=== PATIENT | male | born 1965 | race Caucasian/White ===

== ENCOUNTER 2018-10-25 06:19 | Day surgery (SDC) | payer BC ==
[~2018-10-25 06:19] MED LIST: Buffered Lidocaine 1% SYRIN* 1 ML/SYRINGE INTRADERM ONE; Dexamethasone IV* 4 MG/ML 1 ML (4 MG) IV SLOW PU ONE; Famotidine IV* 10 MG/ML 2 ML (20 mg) IV ONE; Lactated Ringers 1000 ML Bag* 1,000 ML IV SCH
[2018-10-25] MEDS ORDERED: Dexamethasone IV* 4 MG/ML 1 ML (4 MG) ONE (06:31)
[2018-10-25] MEDS ORDERED: Famotidine IV* 10 MG/ML 2 ML (20 mg) ONE (06:31)
[2018-10-25] MEDS ORDERED: Buffered Lidocaine 1% SYRIN* 1 ML/SYRINGE INTRADERM ONE (06:37)
[2018-10-25] MEDS ORDERED: Propofol* 10 MG/ML 20 ML BTL ONE ×2 (07:10→11:44)
[2018-10-25] MEDS ORDERED: Lidocaine 2% PF * 5 ML VIAL ONE (07:10)
[2018-10-25] MEDS ORDERED: Ondansetron INJ* 2 MG/ML VIAL ONE (07:10)
[2018-10-25] MEDS ORDERED: fentaNYL* 50 MCG/ML 2 ML VIAL (100 MCG VIAL) ONE (07:10)
[2018-10-25] MEDS ORDERED: Bupivacaine 0.25% SDV* 30 ML ONE (07:21)
[2018-10-25] MEDS ORDERED: diPHENhydraMINE IV* 50 MG/ML 1 ml VIAL (BENADRYL) IV PRN (08:02)
[2018-10-25] MEDS ORDERED: Naloxone* 0.4 MG/ML 1 ML VIAL IV PRN (08:02)
[2018-10-25] MEDS ORDERED: Ketorolac INJ* 30 MG/ML 1 ML VIAL IV PRN (08:02)
[2018-10-25 09:08] VITALS: BP 114/79
--- NOTE | 2018-10-25 10:57 | OP ---
OPERATIVE REPORT: DATE OF OPERATION: 10/25/18 DATE OF : 67 SURGEON: Alex Shields MD. FIRE CONTROL ASSISTANT: LANA Benedict. ANESTHESIOLOGIST: Dr. Quintero. ANESTHESIA: General. PRE-OP DIAGNOSES: 1. Right carpal tunnel syndrome. 2. 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 POST-OP DIAGNOSES: 1. Right carpal tunnel syndrome. 2. 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 OPERATIVE PROCEDURES: 1. Right endoscopic carpal tunnel release. 2. Right median nerve decompression of the proximal forearm with release of the lacertus fibrosus. INDICATIONS: Mr. Pisano has very severe symptoms related to his median nerve compression. He has cl inical signs and symptoms of compression at the carpal tunnel as well as in the proximal forearm with some slight weakness in the FPL and a lot of pain and tenderness along the median nerve in the proxi mal forearm. We had talked about treatment options, risks, and benefits. He wants to proceed with s urgery. ESTIMATED BLOOD LOSS: 2 mL. COMPLICATIONS: None. FINDINGS: See above and below. DESCRIPTION OF PROCEDURE: Mr. Pisano was seen in the preoperative holding area. The correct site, si de, and procedures were identified. We came back to the operating room. The arm was prepped and alexandra ped in the usual fashion. A time-out was performed. The arm was exsanguinated with the Esmarch, and the tourniquet was inflated to 250 mmHg. I made a 1 cm transverse incision just ulnar to the palmaris longus tendon and just proximal to the wrist flexio n crease. Dissection was carried down. The distal antebrachial fascia was opened transversely blunt ly with the tenotomy scissors. A 2-prong skin hook was applied. The synovial stripper followed by t he dilators and Q-tip were introduced to both dilate and dry out the carpal tunnel. The [employer] end oscopic carpal tunnel system was then positioned in the carpal tunnel into the appropriate location. I then performed a release from distal to proximal, taking care to preserve that no intervening stru ctures were present while performing the release. Once I had completed the entirety of the release o f the transverse carpal ligament, a Shaji retractor was placed. The release was confirmed. Usama mondragon was looking good at this point. I released the distal antebrachial fascia proximally. The wound w as irrigated out and closed with 4-0 Prolene suture. I then made a 2 to 3 cm incision just over the lacertus fibrosus in the proximal forearm transversely . Dissection was carried down bluntly and full-thickness flaps were raised off the lacertus fibrosus and the antebrachial fascia. Army-Hollis retractors were placed. I released the entirety of the lace rtus fibrosus. The release was carried out distally and proximally. Once I had released all the fas zander, there was 1 traversing perforating vessel that was cauterized as well. At this point, everythin g was looking good. I irrigated out the wounds. Skin was closed with 3-0 Monocryl suture. Wounds w ere dressed with Steri-Strips, 4x4s, sterile Webril, and a soft dressing was applied. He was taken t o the recovery room in stable condition. [id number]/[facility] #: [id number]
== END 2018-10-25 09:17 | disposition home or self-care (01) ==
LOC: OREAST 06:19
PROVIDERS: ATTEND Orthopaedic Surgery Hand Surgery
DX: G56.01 Carpal tunnel syndrome, right upper limb (principal); G56.11 Other lesions of median nerve, right upper limb; Z68.36 Body mass index [BMI] 36.0-36.9, adult; M19.90 Unspecified osteoarthritis, unspecified site; F41.8 Other specified anxiety disorders; J30.89 Other allergic rhinitis; Z87.891 Personal history of nicotine dependence
CPT/HCPCS: J1100; J2405; J2704; J3010; J3490